=== PATIENT | male | born 1940 | race Caucasian/White ===

== ENCOUNTER → 2023-07-03 | Outpatient (CLI) | payer OTHER | END | disposition home or self-care (01) | LOC: SHCH 10:53 | PROVIDERS: ATTEND Internal Medicine Cardiovascular Disease | DX: I08.1 Rheumatic disorders of both mitral and tricuspid valves (principal); R94.31 Abnormal electrocardiogram [ECG] [EKG] | CPT/HCPCS: 93306 ==

== ENCOUNTER → 2023-07-06 | Outpatient (CLI) | payer OTHER ==
[~2023-07-06] MED LIST: REGADENOSON 0.4 MG/5 ML PF SYG IVP ONE
== END | disposition home or self-care (01) ==
LOC: SHCH 08:19 → EDUNIT# 08:40
PROVIDERS: ATTEND Internal Medicine Cardiovascular Disease
DX: R94.31 Abnormal electrocardiogram [ECG] [EKG] (principal); I48.20 Chronic atrial fibrillation, unspecified
CPT/HCPCS: 78452; 96374; 93017; J2785; A9500 ×2

== ENCOUNTER 2023-11-15 09:43 | Day surgery (SDC) | payer OTHER ==
[2023-11-12 09:22] VITALS: BP 148/100; PULSE 70; RESP 16
[2023-11-12 09:31] LABS: BASOPHILS # (AUTO) 0.05 K/uL (0.00-0.20); BASOPHILS % (AUTO) 0.7 % (0.0-5.0); EOSINOPHILS # (AUTO) 0.16 K/uL (0.00-0.70); EOSINOPHILS % (AUTO) 2.3 % (0.0-8.0); HEMATOCRIT 47.3 % (42-54); IMMATURE GRANULOCYTE ABSOLUTE 0.02 K/uL (0-1); LYMPHOCYTES # (AUTO) 1.9 K/uL (1.0-4.8); LYMPHOCYTES % (AUTO) 28.2 % (21.0-51.0); MEAN CORPUSCULAR HEMOGLOBIN 29.6 pg (27.0-33.0); MEAN CORPUSCULAR HGB CONC 32.8 g/dL (32.0-36.0); MEAN CORPUSCULAR VOLUME 90.3 fL (79-99); MONOCYTES # (AUTO) 0.6 K/uL (0.1-1.0); MONOCYTES % (AUTO) 8.6 % (3.0-13.0); NEUTROPHILS # (AUTO) 4.1 K/uL (1.8-7.7); NEUTROPHILS % (AUTO) 59.9 % (40.0-77.0); PLATELET COUNT (AUTO) 199 K/uL (130-400); RED BLOOD CELL COUNT(AUTO) 5.24 MIL/uL (4.50-6.20); RED CELL DISTRIBUTION WIDTH 13.5 % (11.0-15.5); WHITE BLOOD COUNT (AUTO) 6.9 K/uL (4.8-10.8)
[2023-11-12 09:37] LABS: APPEARANCE,URINE CLEAR (CLEAR); BILIRUBIN,URINE NEGATIVE (NEGATIVE); COLOR,URINE LIGHT-YELLOW (YELLOW); GLUCOSE, URINE (UA) NEGATIVE (NEGATIVE); KETONES,URINE NEGATIVE (NEGATIVE); LEUKOCYTE ESTERASE ,URINE NEGATIVE Leu/uL (NEGATIVE); NITRATE,URINE NEGATIVE (NEGATIVE); OCCULT BLOOD,URINE NEGATIVE (NEGATIVE); PROTEIN,URINE NEGATIVE (NEGATIVE); UROBILINOGEN,URINE 0.2 mg/dL (0.2-1.0)
[2023-11-12 09:50] LABS: POTASSIUM 4.8 mmol/L (3.5-5.1)
[2023-11-12 09:53] LABS: ADD UA MICROSCOPIC NO
[2023-11-12 09:59] LABS: B-TYPE NATRIURETIC PEPTIDE 160 pg/mL (0-100)
[2023-11-12 10:24] LABS: INR 1.04 (0.85-1.15); PROTHROMBIN TIME 12.2 SEC (9.6-11.6)
[2023-11-15] VITALS (9 sets, daily range): BP systolic 135–170; BP diastolic 75–95; PULSE 54–78; RESP 14–19
[~2023-11-15] VITALS: Ht 172.7 cm; Wt 81.6 kg
[~2023-11-15 09:43] MED LIST changes: +APIX5TAB PO; +CHOL2000 PO; +LOSA50TA64 PO; -REGADENOSON 0.4 MG/5 ML PF SYG IVP ONE; +ROSU10TA22 PO; +SALM1CAP3 PO
[2023-11-15] MEDS ORDERED: LIDOCAINE HCL 400MG/20ML VIAL ONE (13:07)
[2023-11-15] MEDS ORDERED: IOHEXOL-350 50ML VIAL IV ONE (13:08)
[2023-11-15] MEDS ORDERED: NITROGLYCERIN 50MG VIAL ONE (13:08)
[2023-11-15] MEDS ORDERED: HEPARIN 10,000 UNIT/10ML (1,000 UNIT/ML) VIAL ONE (13:08)
[2023-11-15] MEDS ORDERED: SODIUM BICARB 50MEQ 50ML VIAL 50 ML ONE (13:08)
[2023-11-15] MEDS ORDERED: IOHEXOL 350 MG/ML 100ML INFUS..BTL IV ONE (13:08)
[2023-11-15] MEDS ORDERED: NICARDIPINE 25MG INJ IV ONE (13:14)
[2023-11-15] MEDS ORDERED: MIDAZOLAM HCL 1 MG/ML 2ML VIAL ONE (13:32)
[2023-11-15] MEDS ORDERED: MEPERIDINE-PF 25 MG/ML SYG ONE (13:32)
[2023-11-15] MEDS: 0.9%NACL 1000ML 1,000 ML IV ONE (13:35)
[2023-11-15] MEDS ORDERED: 0.9%NACL 1000ML 1,000 ML IV SCH (14:30)
== END 2023-11-15 18:40 | disposition home or self-care (01) ==
LOC: DAH 09:43
PROVIDERS: ATTEND Internal Medicine Cardiovascular Disease
DX: I25.119 Atherosclerotic heart disease of native coronary artery with unspecified angina pectoris (principal); I25.82 Chronic total occlusion of coronary artery; I65.23 Occlusion and stenosis of bilateral carotid arteries; I63.9 Cerebral infarction, unspecified; I10 Essential (primary) hypertension; I45.10 Unspecified right bundle-branch block; I48.91 Unspecified atrial fibrillation; M19.90 Unspecified osteoarthritis, unspecified site; Z86.73 Personal history of transient ischemic attack (TIA), and cerebral infarction without residual deficits; Z90.49 Acquired absence of other specified parts of digestive tract; Z98.890 Other specified postprocedural states; Z82.49 Family history of ischemic heart disease and other diseases of the circulatory system; Z83.3 Family history of diabetes mellitus; Z82.3 Family history of stroke
CPT/HCPCS: 80048; 83880; 85025; 85610; 85730; 81003; 36415; 71045; 93005; 93458; 36223; C1769; C1894; C1760; J3490 ×3; J7030; J2250; J2175; J1644; Q9967; A4215; A4222; A4221; A4663; A4216; A4606; Q9965; A4223 ×3; 99156; 99157